=== PATIENT | male | born 1990 | race African-American/Black ===

== ENCOUNTER 2018-06-11 14:17 | Emergency (ER) | payer MEDICAID ==
[~2018-06-11] VITALS: Ht 180.3 cm; Wt 63.0 kg
[~2018-06-11 14:17] MED LIST: NO MEDS
[2018-06-11 15:20] VITALS: BP 98/62
[2018-06-11] MEDS ORDERED: PREDNISONE 20MG TABLET PO ONE (16:30)
== END 2018-06-11 16:48 | disposition home or self-care (01) ==
LOC: ER 14:17
DX: B34.9 Viral infection, unspecified (principal); J02.9 Acute pharyngitis, unspecified; Z98.890 Other specified postprocedural states
CPT/HCPCS: 99283; J7512; 99282

== ENCOUNTER 2021-09-17 09:38 | Emergency (ER) | payer MEDICAID, OTHER ==
[~2021-09-17] VITALS: Ht 180.3 cm; Wt 64.0 kg
[2021-09-17] MEDS ORDERED: ACETAMINOPHEN 325MG TABLET PO ONE (10:15)
[2021-09-17] MEDS ORDERED: AMOXICILLIN/POTASSIUM CLAVULANATE 875/125MG TAB PO ONE (10:15)
[2021-09-17] MEDS ORDERED: IBUPROFEN 400MG TABLET PO ONE (10:15)
[2021-09-17] MEDS ORDERED: TOPUD PO (10:18)
[2021-09-17] MEDS ORDERED: AMOX1TAB16 MT (10:18)
[2021-09-17] MEDS ORDERED: IBUP-2028 MT (10:18)
[2021-09-17 10:47] VITALS: BP 126/85
== END 2021-09-17 10:49 | disposition home or self-care (01) ==
LOC: ER 09:38
DX: K02.9 Dental caries, unspecified (principal); K04.01 Reversible pulpitis; Z87.891 Personal history of nicotine dependence
CPT/HCPCS: 99284

== ENCOUNTER 2023-02-11 16:55 | Emergency (ER) | payer OTHER ==
[~2023-02-11] VITALS: Ht 182.9 cm; Wt 68.0 kg
[~2023-02-11 16:55] MED LIST changes: +AMOX1TAB16 MT; +IBUP-2028 MT; +TOPUD PO
[2023-02-11 17:04] VITALS: BP 110/68; O2SAT 100
[2023-02-11 22:45] LABS: CHLORIDE 103 mEq/L (98-107); INDEX HEMOLYSI 2 (1-3); INDEX ICTERIC 1 (1-4); INDEX LIPEMIC 1 (1-3); POTASSIUM 4.3 mEq/L (3.5-5.1); SODIUM 139 mEq/L (136-145)
[2023-02-11 22:54] LABS: ALANINE AMINOTRANSFERASE 27 IU/L (13-61); ALBUMIN 3.6 g/dL (3.4-5.0); ASPARTATE AMINOTRANSFERASE 15 IU/L (15-37); BILIRUBIN TOTAL 0.1 mg/dL (0.1-1.0); CALCIUM 8.3 mg/dL (8.5-10.1); CARBON DIOXIDE 35 mEq/L (21-32); GLUCOSE 82 mg/dL (70-105); PROTEIN TOTAL 7.6 g/dL (6.0-8.3); UREA NITROGEN BLOOD 12 mg/dL (7-21)
[2023-02-11 23:11] LABS: BASOPHILS % 0.5 % (0.0-2.0); EOSINOPHILS % 2.3 % (0.0-5.0); HEMATOCRIT. 39.2 % (42.0-52.0); HEMOGLOBIN. 13.5 g/dL (14.0-18.0); MEAN CORPUSCULAR HEMOGLOBIN 28.1 pg (28.0-32.0); MEAN CORPUSCULAR HGB CONC 34.5 g/dL (31.0-37.0); MEAN CORPUSCULAR VOLUME 81.6 fL (80.0-94.0); MEAN PLATELET VOLUME 7.5 fl (7.4-10.4); MONOCYTES % 10.5 % (2.0-8.0); NEUTROPHILS % 59.7 % (40.0-76.0); PLATELET 232 x1000/uL (130-400); RED BLOOD CELL COUNT 4.81 mill/uL (4.7-6.1); RED CELL DISTRIBUTION WIDTH 13.5 % (11.6-14.6); WHITE BLOOD COUNT 5.1 x1000/uL (4.5-11.0)
[2023-02-11] MEDS ORDERED: IBUP-2028 MT (23:43)
[2023-02-12 00:14] VITALS: PULSE 95; RESP 20; TEMP 98.1
== END 2023-02-12 00:15 | disposition home or self-care (01) ==
LOC: ER 16:55
DX: M79.622 Pain in left upper arm (principal)
CPT/HCPCS: 36415; 76881; 80053; 85025; 99284

== ENCOUNTER 2023-02-23 13:56 | Emergency (ER) | payer OTHER ==
[~2023-02-23] VITALS: Ht 180.3 cm; Wt 64.0 kg
[2023-02-23 14:04] VITALS: O2SAT 100
[2023-02-23] MEDS ORDERED: IBUP-2028 MT (17:34)
[2023-02-23 17:45] VITALS: BP 133/70; PULSE 82; RESP 16; TEMP 98.8
[2023-02-23] MEDS ORDERED: IBUPROFEN 400MG TABLET PO ONE (17:45)
== END 2023-02-23 17:46 | disposition home or self-care (01) ==
LOC: ER 14:10
DX: Z76.0 Encounter for issue of repeat prescription (principal); M79.622 Pain in left upper arm; F15.10 Other stimulant abuse, uncomplicated
CPT/HCPCS: 99281; 99282

== ENCOUNTER 2023-10-08 22:22 | Emergency (ER) | payer SELFPAY ==
[~2023-10-08] VITALS: Ht 180.3 cm; Wt 66.0 kg
[2023-10-08 22:46] VITALS: O2SAT 100
[2023-10-09] MEDS: KETOROLAC 15MG/ML VIAL IM ONE (00:12)
[2023-10-09] MEDS ORDERED: NAPR-1176 MT (00:24)
[2023-10-09] MEDS ORDERED: LIDO700A15 TP (00:26)
[2023-10-09 00:57] VITALS: BP 113/67; PULSE 94; RESP 16; TEMP 98.4
== END 2023-10-09 00:59 | disposition home or self-care (01) ==
LOC: ER 22:22
DX: S40.011A Contusion of right shoulder, initial encounter (principal); F15.10 Other stimulant abuse, uncomplicated; Z79.899 Other long term (current) drug therapy; V49.49XA Driver injured in collision with other motor vehicles in traffic accident, initial encounter; Y93.89 Activity, other specified; Y92.89 Other specified places as the place of occurrence of the external cause; Y99.8 Other external cause status
CPT/HCPCS: 99283; 73030; 96372; J1885